=== PATIENT | female | born 1960 | race African-American/Black ===

== ENCOUNTER 2017-04-26 09:53 | Emergency (ER) | payer MEDICAID, OTHER ==
[~2017-04-26] VITALS: Ht 167.6 cm; Wt 78.0 kg
[~2017-04-26 09:53] MED LIST: CALCITRIOL; DIOVAN; NAPROSYN
[2017-04-26 12:00] VITALS: BP 135/75
== END 2017-04-26 12:34 | disposition home or self-care (01) ==
LOC: ER 12:08
DX: L02.511 Cutaneous abscess of right hand (principal); T63.441A Toxic effect of venom of bees, accidental (unintentional), initial encounter; Y92.89 Other specified places as the place of occurrence of the external cause; I10 Essential (primary) hypertension; D57.1 Sickle-cell disease without crisis; F17.210 Nicotine dependence, cigarettes, uncomplicated; Z98.890 Other specified postprocedural states
CPT/HCPCS: 99283

== ENCOUNTER 2017-08-11 11:01 | Emergency (ER) | payer OTHER ==
[~2017-08-11] VITALS: Ht 167.6 cm; Wt 79.0 kg
[2017-08-11] MEDS ORDERED: VALS1TAB6 PO (11:16)
[2017-08-11 11:59] VITALS: BP 145/73
[2017-08-11] MEDS ORDERED: IBUPROFEN 600MG TABLET PO ONE (12:00)
== END 2017-08-11 12:11 | disposition home or self-care (01) ==
LOC: ER 11:09
DX: L03.012 Cellulitis of left finger (principal); I10 Essential (primary) hypertension; F17.200 Nicotine dependence, unspecified, uncomplicated
CPT/HCPCS: 99283; X7700; Z7610

== ENCOUNTER 2020-05-04 08:29 | Emergency (ER) | payer OTHER ==
[~2020-05-04] VITALS: Ht 167.6 cm; Wt 84.0 kg
[~2020-05-04 08:29] MED LIST changes: +VALS1TAB6 PO
[2020-05-04] MEDS ORDERED: LIDOCAINE 1%/EPI 1:100,000 10 ML VIAL IJ ONE (09:15)
[2020-05-04] MEDS ORDERED: TETANUS, DIPHTHERIA, PERTUSSIS VAC/PF 0.5ML (>7YR OLD) IM ONE (09:15)
[2020-05-04] MEDS ORDERED: BACITRACIN ZINC OINT UDPKT TOP ONE (09:15)
[2020-05-04 09:55] VITALS: BP 158/76
== END 2020-05-04 09:56 | disposition home or self-care (01) ==
LOC: ER 08:29
DX: L72.3 Sebaceous cyst (principal); I10 Essential (primary) hypertension; D57.1 Sickle-cell disease without crisis; Z90.49 Acquired absence of other specified parts of digestive tract
CPT/HCPCS: 99281

== ENCOUNTER 2020-05-21 07:33 | Emergency (ER) | payer MEDICAID, OTHER ==
[~2020-05-21] VITALS: Ht 167.6 cm; Wt 84.0 kg
[2020-05-21] MEDS ORDERED: LIDOCAINE 1%/EPI 1:100,000 10 ML VIAL IJ ONE (09:00)
[2020-05-21] MEDS ORDERED: ACETAMINOPHEN 325MG TABLET PO ONE (09:00)
[2020-05-21] MEDS ORDERED: TETANUS, DIPHTHERIA, PERTUSSIS VAC/PF 0.5ML (>7YR OLD) IM ONE (09:00)
[2020-05-21 09:35] VITALS: BP 133/78
== END 2020-05-21 09:44 | disposition home or self-care (01) ==
LOC: ER 07:33
DX: L72.3 Sebaceous cyst (principal); I10 Essential (primary) hypertension; Z79.899 Other long term (current) drug therapy; Z90.49 Acquired absence of other specified parts of digestive tract; Z48.817 Encounter for surgical aftercare following surgery on the skin and subcutaneous tissue
CPT/HCPCS: 10060; 99283; J3490

== ENCOUNTER 2020-07-17 11:20 | Emergency (ER) | payer MEDICAID, OTHER ==
[~2020-07-17] VITALS: Ht 170.2 cm; Wt 65.0 kg
[2020-07-17 11:29] VITALS: BP 172/82
[2020-07-17] MEDS ORDERED: ALBUTEROL (0.5%) 2.5MG/0.5ML NEB HHN ONE (11:45)
== END 2020-07-17 13:56 | disposition home or self-care (01) ==
LOC: ER 11:20
DX: F17.293 Nicotine dependence, other tobacco product, with withdrawal (principal); J44.1 Chronic obstructive pulmonary disease with (acute) exacerbation; I50.9 Heart failure, unspecified; R03.0 Elevated blood-pressure reading, without diagnosis of hypertension
CPT/HCPCS: 71045; 99283

== ENCOUNTER 2021-01-21 09:23 | Emergency (ER) | payer MEDICAID ==
[~2021-01-21] VITALS: Ht 167.6 cm; Wt 88.3 kg
[2021-01-21] MEDS ORDERED: ONDANSETRON HCL 4MG/2ML INJ IV STA (10:34)
[2021-01-21] MEDS ORDERED: FAMOTIDINE 20MG/2ML VIAL IV STA (10:34)
[2021-01-21] MEDS ORDERED: SODIUM CHLORIDE 0.9% 1,000 ML IV ONE (10:45)
[2021-01-21] MEDS ORDERED: ONDANSETRON 4MG ODT PO ONE (11:00)
[2021-01-21 11:16] LABS: CLARITY URINE CLEAR (CLEAR); COLOR URINE YELLOW (YELLOW); KETONES URINE TRACE (NEGATIVE); LEUKOCYTE ESTERASE URINE NEGATIVE (NEGATIVE); NITRITE URINE NEGATIVE (NEGATIVE); OCCULT BLOOD URINE NEGATIVE (NEGATIVE); PROTEIN URINE NEGATIVE (NEGATIVE); SPECIFIC GRAVITY URINE 1.024 (1.005-1.030); UROBILINOGEN URINE 0.2 E.U./dL (0.2-1.0)
[2021-01-21 11:47] LABS: BASOPHILS % 0.8 % (0.0-2.0); EOSINOPHILS % 1.5 % (0.0-5.0); HEMATOCRIT. 34.9 % (36.0-48.0); HEMOGLOBIN. 11.8 g/dL (12.0-16.0); MEAN CORPUSCULAR HEMOGLOBIN 33.4 pg (28.0-32.0); MEAN CORPUSCULAR VOLUME 98.6 fL (81.0-99.0); MEAN PLATELET VOLUME 8.3 fl (7.4-10.4); MONOCYTES % 8.5 % (2.0-8.0); NEUTROPHILS % 55.2 % (40.0-76.0); PLATELET 299 x1000/uL (130-400); RED BLOOD CELL COUNT 3.54 mill/uL (4.2-5.4); RED CELL DISTRIBUTION WIDTH 13.4 % (11.6-14.6)
[2021-01-21 11:52] LABS: CHLORIDE 107 mEq/L (98-107)
[2021-01-21 11:54] LABS: PROTHROMBIN TIME 10.9 sec (9.6-11.0)
[2021-01-21] MEDS ORDERED: HYDROCODONE/ACETAMINOPHEN 5/325MG TABLET PO ONE (12:15)
[2021-01-21 12:22] VITALS: BP 156/80
[2021-01-21] MEDS ORDERED: TRAM50TA MT (12:49)
[2021-01-21] MEDS ORDERED: ONDA4TAB5 MT (12:49)
[2021-01-21] MEDS ORDERED: OMEP20CA14 MT (12:49)
[2021-01-21] MEDS ORDERED: POLY119P2 MT (12:49)
== END 2021-01-21 13:24 | disposition home or self-care (01) ==
LOC: ER 09:23
DX: K80.50 Calculus of bile duct without cholangitis or cholecystitis without obstruction (principal); I11.0 Hypertensive heart disease with heart failure; I50.9 Heart failure, unspecified; J44.1 Chronic obstructive pulmonary disease with (acute) exacerbation; Z79.899 Other long term (current) drug therapy; Z98.890 Other specified postprocedural states
CPT/HCPCS: 36415; 71045; 74176; 80053; 81003; 83690; 85025; 85610; 93005; 99285; J7030; Q0162

== ENCOUNTER 2021-05-18 10:29 | Emergency (ER) | payer MEDICAID, OTHER ==
[~2021-05-18] VITALS: Ht 165.1 cm; Wt 87.0 kg
[~2021-05-18 10:29] MED LIST changes: +OMEP20CA14 MT; +ONDA4TAB5 MT; +POLY119P2 MT; +TRAM50TA MT
[2021-05-18 10:50] VITALS: BP 135/69
[2021-05-18] MEDS ORDERED: IBUP-2029 MT (11:04)
[2021-05-18] MEDS ORDERED: CEPH500C2 MT (11:04)
[2021-05-18] MEDS ORDERED: IBUPROFEN 800MG TABLET PO ONE (11:15)
== END 2021-05-18 11:19 | disposition home or self-care (01) ==
LOC: ER 10:29
DX: L03.221 Cellulitis of neck (principal); I11.0 Hypertensive heart disease with heart failure; I50.9 Heart failure, unspecified; Z79.899 Other long term (current) drug therapy
CPT/HCPCS: 99283

== ENCOUNTER 2022-01-03 14:39 | Inpatient (IN) | payer OTHER ==
[~2022-01-03] VITALS: Ht 167.6 cm; Wt 92.7 kg
[~2022-01-03 14:39] MED LIST changes: +CEPH500C2 MT; +IBUP-2029 MT
[2022-01-03 15:20] LABS: CHLORIDE 107 mEq/L (98-107)
[2022-01-03 15:21] LABS: BASOPHILS % 0.7 % (0.0-2.0); EOSINOPHILS % 1.9 % (0.0-5.0); HEMATOCRIT. 36.7 % (36.0-48.0); HEMOGLOBIN. 11.7 g/dL (12.0-16.0); LYMPHOCYTES % 29.2 % (20.0-50.0); MEAN CORPUSCULAR HEMOGLOBIN 31.3 pg (28.0-32.0); MEAN CORPUSCULAR VOLUME 97.9 fL (81.0-99.0); MEAN PLATELET VOLUME 10.8 fl (7.4-10.4); MONOCYTES % 11.6 % (2.0-8.0); NEUTROPHILS % 56.6 % (40.0-76.0); PLATELET 118 x1000/uL (130-400); RED BLOOD CELL COUNT 3.74 mill/uL (4.2-5.4); RED CELL DISTRIBUTION WIDTH 15.1 % (11.6-14.6)
[2022-01-03] MEDS ORDERED: FUROSEMIDE 40MG/4ML VIAL IVP ONE (15:30)
[2022-01-03] MEDS ORDERED: POTASSIUM CHLORIDE 20MEQ TABLET SR PO ONE (16:00)
[2022-01-03] MEDS ORDERED: KCL 10MEQ/50ML PREMIX 50 ML IV ONE (16:00)
[2022-01-03] MEDS ORDERED: CEFTRIAXONE 1 G PREMIX 50 ML IV ONE (17:45)
[2022-01-03] MEDS ORDERED: AZITHROMYCIN 500MG/250ML 250 ML IV ONE (17:45)
[2022-01-03 22:00] VITALS: BP 143/85
[2022-01-03 22:42] VITALS: BP 143/85
[2022-01-03] MEDS ORDERED: FURO20TA4 MT (22:55)
[2022-01-04] VITALS (11 sets, daily range): BP systolic 95–149; BP diastolic 56–97
[2022-01-04] MEDS ORDERED: ACETAMINOPHEN 325MG TABLET PO PRN (00:30)
[2022-01-04] MEDS ORDERED: HYDROCODONE/ACETAMINOPHEN 5/325MG TABLET PO PRN (00:30)
[2022-01-04] MEDS ORDERED: IPRATROPIUM/ALBUTEROL 0.5-3(2.5)MG/3ML NEB HHN PRN (00:30)
[2022-01-04] MEDS ORDERED: ENOXAPARIN 40MG/0.4ML SYR SUBCUT SCH (09:00)
[2022-01-04] MEDS ORDERED: FUROSEMIDE 40MG/4ML VIAL IVP SCH (09:00)
[2022-01-04] MEDS: PANTOPRAZOLE SODIUM 40 MG/VIAL IV SCH (10:04)
[2022-01-04] MEDS: ENOXAPARIN 30MG/0.3ML SYR SUBCUT SCH ×2 (10:04→21:06)
[2022-01-04] MEDS: LOSARTAN POTASSIUM 25 MG TABLET PO SCH (13:00)
[2022-01-04] MEDS ORDERED: POTASSIUM CHLORIDE 20MEQ TABLET SR PO SCH (13:00)
[2022-01-04] MEDS: ASPIRIN 81MG TABLET PO SCH (14:00)
[2022-01-04 15:17] LABS: BASOPHILS % 0.7 % (0.0-2.0); EOSINOPHILS % 2.6 % (0.0-5.0); HEMATOCRIT. 37.8 % (36.0-48.0); HEMOGLOBIN. 12.3 g/dL (12.0-16.0); LYMPHOCYTES % 26.5 % (20.0-50.0); MEAN CORPUSCULAR HEMOGLOBIN 31.2 pg (28.0-32.0); MEAN PLATELET VOLUME 10.5 fl (7.4-10.4); MONOCYTES % 10.1 % (2.0-8.0); NEUTROPHILS % 60.1 % (40.0-76.0); PLATELET 141 x1000/uL (130-400); RED BLOOD CELL COUNT 3.93 mill/uL (4.2-5.4); RED CELL DISTRIBUTION WIDTH 14.8 % (11.6-14.6)
[2022-01-04 15:26] LABS: CHLORIDE 107 mEq/L (98-107)
[2022-01-04 15:33] LABS: LDL CHOLESTEROL 82 mg/dL (5-100)
[2022-01-04 15:35] LABS: HDL CHOLESTEROL 44 mg/dL (40-59)
[2022-01-04] MEDS: FUROSEMIDE 40MG/4ML VIAL IVP SCH (17:00)
[2022-01-04] MEDS: CARVEDILOL 3.125 MG TABLET PO SCH (21:05)
[2022-01-04 21:49] LABS: *AMPHETAMINES SCREEN URINE NEGATIVE (NEGATIVE); *BARBITURATES SCREEN URINE NEGATIVE (NEGATIVE); *BENZODIAZEPINES SCREEN URINE PRESUMTIVE POSITIVE (NEGATIVE); *COCAINE SCREEN URINE NEGATIVE (NEGATIVE); CANNABINOID URINE SCREEN NEGATIVE (NEGATIVE); METHADONE URINE SCREEN NEGATIVE (NEGATIVE); OPIATES URINE SCREEN NEGATIVE (NEGATIVE); PHENCYCLIDINE URINE SCREEN NEGATIVE (NEGATIVE)
[2022-01-05] VITALS (13 sets, daily range): BP systolic 90–131; BP diastolic 60–86
[2022-01-05 05:38] LABS: BASOPHILS % 0.7 % (0.0-2.0); EOSINOPHILS % 2.8 % (0.0-5.0); HEMATOCRIT. 36.2 % (36.0-48.0); HEMOGLOBIN. 11.8 g/dL (12.0-16.0); MEAN CORPUSCULAR HEMOGLOBIN 31.5 pg (28.0-32.0); MEAN CORPUSCULAR VOLUME 96.8 fL (81.0-99.0); MEAN PLATELET VOLUME 10.9 fl (7.4-10.4); MONOCYTES % 11.3 % (2.0-8.0); NEUTROPHILS % 59.2 % (40.0-76.0); PLATELET 131 x1000/uL (130-400); RED BLOOD CELL COUNT 3.74 mill/uL (4.2-5.4); RED CELL DISTRIBUTION WIDTH 14.4 % (11.6-14.6)
[2022-01-05 05:43] LABS: CHLORIDE 108 mEq/L (98-107)
[2022-01-05] MEDS: LOSARTAN POTASSIUM 25 MG TABLET PO SCH (09:05)
[2022-01-05] MEDS: ASPIRIN 81MG TABLET PO SCH (09:05)
[2022-01-05] MEDS: PANTOPRAZOLE SODIUM 40 MG/VIAL IV SCH (09:08)
[2022-01-05] MEDS: CARVEDILOL 3.125 MG TABLET PO SCH ×2 (09:08→21:10)
[2022-01-05] MEDS: FUROSEMIDE 40MG/4ML VIAL IVP SCH (09:09)
[2022-01-05] MEDS: ENOXAPARIN 30MG/0.3ML SYR SUBCUT SCH ×3 (09:22→21:10)
[2022-01-05] MEDS: POTASSIUM CHLORIDE 20MEQ TABLET SR PO SCH ×2 (13:33→17:00)
[2022-01-05] MEDS: MAGNESIUM OXIDE 400MG TABLET PO SCH (14:00)
[2022-01-05] MEDS ORDERED: LACTULOSE 20G/30ML UDC PO PRN (17:00)
[2022-01-05] MEDS ORDERED: LACTULOSE 20G/30ML UDC PO SCH (17:00)
[2022-01-05] MEDS: FUROSEMIDE 100MG/10ML VIAL IVP SCH (18:42)
[2022-01-06 02:00] VITALS: BP 141/86
[2022-01-06 04:30] VITALS: BP 113/68
[2022-01-06 06:00] VITALS: BP 113/66
[2022-01-06] MEDS: FUROSEMIDE 100MG/10ML VIAL IVP SCH (06:55)
[2022-01-06 08:00] VITALS: BP 130/61
[2022-01-06] MEDS: ENOXAPARIN 30MG/0.3ML SYR SUBCUT SCH ×2 (09:00→09:10)
[2022-01-06] MEDS: PANTOPRAZOLE SODIUM 40 MG/VIAL IV SCH ×2 (09:00→09:10)
[2022-01-06] MEDS: MAGNESIUM OXIDE 400MG TABLET PO SCH (09:00)
[2022-01-06] MEDS: ASPIRIN 81MG TABLET PO SCH (09:08)
[2022-01-06] MEDS: LOSARTAN POTASSIUM 25 MG TABLET PO SCH (09:09)
[2022-01-06] MEDS: POTASSIUM CHLORIDE 20MEQ TABLET SR PO SCH (09:09)
[2022-01-06] MEDS: CARVEDILOL 3.125 MG TABLET PO SCH (09:09)
[2022-01-06 10:15] VITALS: BP 142/79
[2022-01-06 10:34] VITALS: BP 142/79
[2022-01-06 10:50] LABS: BASOPHILS % 0.9 % (0.0-2.0); EOSINOPHILS % 2.4 % (0.0-5.0); HEMOGLOBIN. 12.8 g/dL (12.0-16.0); LYMPHOCYTES % 25.6 % (20.0-50.0); MEAN CORPUSCULAR HEMOGLOBIN 31.4 pg (28.0-32.0); MEAN PLATELET VOLUME 10.4 fl (7.4-10.4); MONOCYTES % 12.1 % (2.0-8.0); PLATELET 171 x1000/uL (130-400); RED BLOOD CELL COUNT 4.06 mill/uL (4.2-5.4); RED CELL DISTRIBUTION WIDTH 14.8 % (11.6-14.6)
[2022-01-06 10:54] LABS: CHLORIDE 101 mEq/L (98-107)
== END 2022-01-06 11:01 | disposition home or self-care (01) | DRG 194 ==
LOC: ER 14:46 → 5EST 19:10 → ENRESERV 20:30 → 5EST 21:53
PROVIDERS: ADMIT Internal Medicine; ATTEND Internal Medicine
PROC: 5A09357 Assistance with Respiratory Ventilation, Less than 24 Consecutive Hours, Continuous Positive Airway Pressure (ICD-10-PCS; principal; 2022-01-03)
PROC: 5A09357 Assistance with Respiratory Ventilation, Less than 24 Consecutive Hours, Continuous Positive Airway Pressure (ICD-10-PCS; 2022-01-04)
PROC: 5A09357 Assistance with Respiratory Ventilation, Less than 24 Consecutive Hours, Continuous Positive Airway Pressure (ICD-10-PCS; 2022-01-05)
DX: I11.0 Hypertensive heart disease with heart failure (principal); J96.90 Respiratory failure, unspecified, unspecified whether with hypoxia or hypercapnia; D69.6 Thrombocytopenia, unspecified; I27.20 Pulmonary hypertension, unspecified; I42.0 Dilated cardiomyopathy; E78.5 Hyperlipidemia, unspecified; I50.23 Acute on chronic systolic (congestive) heart failure; D57.3 Sickle-cell trait; E83.42 Hypomagnesemia; J44.9 Chronic obstructive pulmonary disease, unspecified; Z20.822 Contact with and (suspected) exposure to COVID-19; R00.1 Bradycardia, unspecified; I25.10 Atherosclerotic heart disease of native coronary artery without angina pectoris; I34.0 Nonrheumatic mitral (valve) insufficiency; Z82.49 Family history of ischemic heart disease and other diseases of the circulatory system; Z87.891 Personal history of nicotine dependence; Z79.82 Long term (current) use of aspirin; Z79.899 Other long term (current) drug therapy; Z88.8 Allergy status to other drugs, medicaments and biological substances; F10.11 Alcohol abuse, in remission; F19.21 Other psychoactive substance dependence, in remission
CPT/HCPCS: 36415; 71045; 80048; 80053; 80061; 80305; 83735; 83880; 84484; 85025; 87426; 93005; 93306; 94660; 99291; C9113; J0456; J1650; J1940; J3480

== ENCOUNTER 2022-05-13 05:55 | Emergency (ER) | payer MEDICAID, OTHER ==
[~2022-05-13] VITALS: Ht 167.6 cm; Wt 86.5 kg
[~2022-05-13 05:55] MED LIST changes: -CALCITRIOL; -CEPH500C2 MT; -DIOVAN; -IBUP-2029 MT; -NAPROSYN; -OMEP20CA14 MT; -ONDA4TAB5 MT; -TRAM50TA MT; -VALS1TAB6 PO
[2022-05-13] MEDS ORDERED: KETOROLAC 30MG/ML VIAL IV STA (06:47)
[2022-05-13 07:27] LABS: BASOPHILS % 0.7 % (0.0-2.0); EOSINOPHILS % 1.4 % (0.0-5.0); HEMATOCRIT. 32.7 % (36.0-48.0); HEMOGLOBIN. 10.5 g/dL (12.0-16.0); LYMPHOCYTES % 17.4 % (20.0-50.0); MEAN CORPUSCULAR HEMOGLOBIN 31.8 pg (28.0-32.0); MEAN CORPUSCULAR VOLUME 99.4 fL (81.0-99.0); MEAN PLATELET VOLUME 9.3 fl (7.4-10.4); MONOCYTES % 10.5 % (2.0-8.0); PLATELET 204 x1000/uL (130-400); RED BLOOD CELL COUNT 3.29 mill/uL (4.2-5.4); RED CELL DISTRIBUTION WIDTH 14.1 % (11.6-14.6)
[2022-05-13 07:31] LABS: CHLORIDE 106 mEq/L (98-107)
[2022-05-13 07:34] LABS: INR 1.1; PROTHROMBIN TIME 11.5 sec (9.6-11.0)
[2022-05-13 09:28] VITALS: BP 131/72
== END 2022-05-13 09:15 | disposition home or self-care (01) ==
LOC: ER 05:55
DX: K62.5 Hemorrhage of anus and rectum (principal); I11.0 Hypertensive heart disease with heart failure; I50.9 Heart failure, unspecified; Z90.49 Acquired absence of other specified parts of digestive tract
CPT/HCPCS: 36415; 74176; 80053; 83690; 85025; 85610; 96374; 99284; J1885